=== PATIENT | female | born 1940 | race Caucasian/White ===

== ENCOUNTER 2021-12-16 09:30 | Outpatient (CLI) | payer MEDICARE, OTHER | END 2021-12-16 09:31 | disposition home or self-care (01) | LOC: PET 09:30 | PROVIDERS: ATTEND Internal Medicine Hematology & Oncology | DX: C43.62 Malignant melanoma of left upper limb, including shoulder (principal); C84.00 Mycosis fungoides, unspecified site | CPT/HCPCS: 78816; A9552 ==